=== PATIENT | female | born 1970 | race Two or more races ===

== ENCOUNTER 2017-04-07 22:01 | Emergency (ER) | payer MEDICAID, OTHER ==
[~2017-04-07] VITALS: Ht 165.1 cm; Wt 68.0 kg
[2017-04-07 22:38] LABS: Basophils # (auto) 0 uL; Eosinophils # (auto) 0.1 uL; Lymphocytes # (auto) 1.3 uL; Monocytes # (auto) 0.5 uL
[2017-04-07 22:40] LABS: Basophils % (auto) 0.6 % (0.0-2.0); Eosinophils % (auto) 2.8 % (0.0-7.0); Hematocrit 33.7 % (36.0-46.0); Lymphocytes % (auto) 32.4 % (10.0-50.0); Mean Corpuscular Hemoglobin 25.1 pg (28.0-32.0); Mean Corpuscular Hgb Conc. 32.7 g/dL (32.0-36.0); Mean Corpuscular Volume 76.6 fL (80.0-100.0); Mean Platelet Volume 8.5 fL (6.9-10.8); Monocytes % (auto) 13.2 % (0.0-12.0); Nucleated Red Blood Cells % 0.4 %; Platelet Count (auto) 257 10^3/uL (140-450); White Blood Cell 3.9 10^3/uL (4.4-10.8)
[2017-04-07 22:49] LABS: Red Cell Distribution Width 23.5 % (11.8-14.3)
[2017-04-07 22:53] LABS: Albumin 3.1 g/dL (3.4-5.0); BUN/Creatinine Ratio 15.1; Potassium 3.5 mmol/L (3.5-5.1)
[2017-04-07 22:56] LABS: Bilirubin, Total 0.2 mg/dL (0.2-1.0); Total Protein 9.8 g/dL (6.4-8.2)
[2017-04-07 23:16] LABS: INR 0.98 (0.9-1.15); Partial Thromboplastin Time 25.9 sec (22.64-33.71); Prothrombin Time 10.7 sec (9.37-12.3)
[2017-04-07 23:29] LABS: Anisocytosis Slight; Microcytosis Slight; Ovalocytes FEW; Platelet Estimate Adequate
[2017-04-08] MEDS ORDERED: cefTRIAXone 1GM/50ML D5W 50 ML IV ONE (03:15)
[2017-04-08] MEDS ORDERED: VANCOMYCIN 1GM/250ML D5W 250 ML IV ONE (03:15)
[2017-04-08 06:45] VITALS: BP 92/56
[2017-04-08] MEDS ORDERED: diphenhdrAMINE HCL 50 MG/1 ML VL ONE (07:02)
[2017-04-08] MEDS ORDERED: diphenhdrAMINE HCL 50 MG/1 ML VL IV ONE (07:15)
== END 2017-04-08 08:15 | disposition home or self-care (01) ==
LOC: ER 22:04
DX: L03.115 Cellulitis of right lower limb (principal); Z88.0 Allergy status to penicillin
CPT/HCPCS: 36415; 80053; 85025; 85610; 85730; 96365; 96366; 96367; 96375; 99285; J0696; J1200; J3370